=== PATIENT | male | born 1985 | race Caucasian/White ===

== ENCOUNTER 2016-10-05 09:12 | Emergency (ER) | payer OTHER ==
[~2016-10-05] VITALS: Ht 185.4 cm; Wt 69.4 kg
[~2016-10-05 09:12] MED LIST: BACTRIM,SEPT1 TABLET PO; CIPROFLOXACIN500 M1 PO; CLINDAMYCIN HC300 MG PO; DOXYCYCLINE HY100 M3 PO; HYDROCODON-ACE1 EAC7 PO; LACTINEX PACKE1 EACH PO; MOTRIN400 MG PO
[2016-10-05 09:15] VITALS: BP 127/81
== END 2016-10-05 13:06 | disposition left against medical advice (07) ==
LOC: EME 09:12
DX: R60.1 Generalized edema (principal); F19.90 Other psychoactive substance use, unspecified, uncomplicated; F17.200 Nicotine dependence, unspecified, uncomplicated
CPT/HCPCS: 73060; 80053; 85027; 99281